=== PATIENT | male | born 1950 | race Caucasian/White ===

== ENCOUNTER 2016-05-06 10:29 | Day surgery (SDC) | payer OTHER ==
[2016-05-06] MEDS ORDERED: ASPIRIN EC 325 MG TAB PO ONE (10:34)
[2016-05-06] MEDS ORDERED: DIAZEPAM 5 MG TAB PO ONE (10:34)
[2016-05-06] MEDS ORDERED: diphenhydrAMINE 25 MG CAP PO ONE ×2 (10:34→11:04)
[2016-05-06] MEDS ORDERED: NS 1,000 ML IV ONE (10:34)
[2016-05-06] MEDS ORDERED: FAMOTIDINE 20 MG TAB PO ONE (10:34)
--- NOTE | 2016-05-06 10:53 | CPEKG ---
Heart Rate: 57 RR Interval: 1053 P-R Interval: 148 QRSD Interval: 98 QT Interval: 420 QTC Interval: 409 P Pablo: 66 QRS Pablo: 13 T Wave Pablo: 33 EKG Severity - NORMAL ECG - EKG Impression: SINUS RHYTHM EKG Impression: Agree with above Electronically Signed By: Bong Rice 06-May-2016 15:30:52
[2016-05-06] MEDS ORDERED: DIAZEPAM 5 MG TAB ONE (11:04)
[2016-05-06] MEDS ORDERED: FAMOTIDINE 20 MG TAB ONE (11:04)
[2016-05-06] MEDS ORDERED: ASPIRIN EC 81 MG TAB PO ONE (11:05)
[2016-05-06 11:10] LABS: % IMMATURE GRANULYOCYTES 0.2 % (0.0-1.1); ABSOLUTE IMMATURE GRANULOCYTES 0.01 10^3/uL (0.00-0.10); ADD DIFF? NO; ADD MORPH? NO; ADD SCAN? NO; ATYPICAL LYMPHOCYTE FLAG 0 (0-99); FRAGMENT RBC FLAG 0 (0-99); HEMATOCRIT 45.4 % (40.0-51.0); HEMOGLOBIN 16.1 g/dL (13.7-17.5); LEFT SHIFT FLG 0 (0-99); LIPEMIA HEMOLYSIS FLAG 90 (0-99); MEAN CELL HEMOGLOBIN 33.1 pg (27.9-34.1); MEAN CELL HEMOGLOBIN CONCENTR. 35.5 g/dL (32.4-36.7); MEAN CELL VOLUME 93.4 fL (81.5-99.8); MEAN PLATELET VOLUME 10.2 fL (8.7-11.7); PLATELET CLUMPS FLAG 0 (0-99); PLATELET COUNT 152 10^3/uL (150-400); RED BLOOD CELL COUNT 4.86 10^6/uL (4.40-6.38); RED CELL DISTRIBUTION WIDTH 12.5 % (11.5-15.2)
[2016-05-06 11:18] LABS: ANION GAP 10 mEq/L (8-16); CALCIUM 9.4 mg/dL (8.5-10.4); CARBON DIOXIDE 23 mEq/l (22-31); CHLORIDE 106 mEq/L (97-110); CHOLESTEROL 195 mg/dL (140-220); CHOLESTEROL/HDL RATIO 3.75 RATIO (1.00-4.97); CREATININE 1.1 mg/dL (0.7-1.3); GLOMERULAR FILTRATION RATE > 60; GLUCOSE 100 mg/dL (70-100); HIGH DENSITY LIPOPROTEIN 52 mg/dL (40-65); LDL/HDL RATIO 2.46 RATIO (1.00-3.64); LOW DENSITY LIPOPROTEIN 128 mg/dL (80-100); NON-HIGH DENSITY LIPOPROTEIN 143 mg/dL (90-129); POTASSIUM 4.2 mEq/L (3.5-5.2); SODIUM 139 mEq/L (134-144); TRIGLYCERIDE 78 mg/dL (40-150); VERY LOW DENSITY LIPOPROTEINS 15 mg/dL (8-25)
[2016-05-06 11:19] LABS: INR 1.04 (0.83-1.16); PROTIME(PATIENT) 13.5 SEC (12.0-15.0)
[2016-05-06] MEDS ORDERED: fentaNYL 100 MCG/2 ML INJ ONE ×2 (13:11→14:01)
[2016-05-06] MEDS ORDERED: HEPARIN 10,000 UNIT/10 ML MDV ONE (13:11)
[2016-05-06] MEDS ORDERED: MIDAZOLAM 2 MG/2 ML VIAL ONE ×2 (13:11→14:01)
[2016-05-06] MEDS ORDERED: LIDOCAINE 1% 30 ML SDV ONE (13:11)
[2016-05-06] MEDS ORDERED: VERAPAMIL 5 MG/2 ML VIAL ONE (13:11)
[2016-05-06] MEDS ORDERED: IOPAMIDOL (ISOVUE 370) 100 ML BTL IV ONE (13:14)
[2016-05-06] MEDS ORDERED: ONDANSETRON 4 MG/2 ML VIAL IVP PRN (14:55)
[2016-05-06] MEDS ORDERED: NITROGLYCERIN 0.4 MG BTL SL PRN (14:55)
[2016-05-06] MEDS ORDERED: ATROPINE SULFATE 1 MG/10 ML SYR IVP PRN (14:55)
[2016-05-06] MEDS ORDERED: OXYCODONE/APAP 5/325 TAB PO PRN (14:55)
[2016-05-06] MEDS ORDERED: HYDROCODONE/APAP 5/325 TAB PO PRN (14:55)
--- NOTE | 2016-05-06 14:58 | PDDXCAT ---
Diagnostic Cath Note - . Date: 05/06/16 Chief Controller: Luis Alberto Indication: Class I/II angina, intolerance to med therapy or failure to respond - Procedure Access: right wrist Procedure: left heart catheterization, coronary angiography - Materials Left Heart Cath size: 5F Left Heart Cath materials: pigtail, other (SiteSeer) - Findings-Left Heart Catheterization LM: normal LAD: normal LCX: normal RCA: anterior take off. Normal Complications: none Estimated blood loss: <50ml Closure method: TR Band Assessment: normal cors. normal LV function Plan: continue primary prevention
== END 2016-05-06 17:58 | disposition home or self-care (01) ==
LOC: FCATH 10:29
PROVIDERS: ATTEND Internal Medicine Interventional Cardiology
DX: R94.39 Abnormal result of other cardiovascular function study (principal); R07.89 Other chest pain; I35.1 Nonrheumatic aortic (valve) insufficiency; N40.0 Benign prostatic hyperplasia without lower urinary tract symptoms
CPT/HCPCS: 93005; 93458; C1769; J1644; J2250; J3010; Q9967